=== PATIENT | male | born 2000 | race Two or more races ===

== ENCOUNTER 2024-04-23 18:05 | Emergency (ER) | payer OTHER ==
[~2024-04-23] VITALS: Ht 182.9 cm; Wt 79.4 kg
[2024-04-23] MEDS ORDERED: PROSCAR5 MG (18:11)
== END 2024-04-23 21:42 | disposition home or self-care (01) ==
LOC: ER 18:06
DX: S01.81XA Laceration without foreign body of other part of head, initial encounter (principal); W21.4XXA Striking against diving board, initial encounter; Y93.18 Activity, surfing, windsurfing and boogie boarding; Y92.832 Beach as the place of occurrence of the external cause; Y99.9 Unspecified external cause status